=== PATIENT | male | born 1955 | race American Indian/Alaskan Native ===

== ENCOUNTER 2017-10-03 13:37 | Outpatient (CLI) | payer OTHER ==
[2017-10-03 14:01] LABS: INR 1.49 (0.87-1.13)
== END 2017-10-03 13:38 | disposition home or self-care (01) ==
LOC: LAB 13:37
PROVIDERS: ATTEND Internal Medicine
DX: Z51.81 Encounter for therapeutic drug level monitoring (principal)
CPT/HCPCS: 36415; 85610

== ENCOUNTER 2017-11-17 09:54 | Outpatient (CLI) | payer OTHER ==
[2017-11-17 10:42] LABS: INR 1.93 (0.87-1.13)
== END 2017-11-17 09:55 | disposition home or self-care (01) ==
LOC: LAB 09:54
PROVIDERS: ATTEND Internal Medicine
DX: Z51.81 Encounter for therapeutic drug level monitoring (principal)
CPT/HCPCS: 36415; 85610